=== PATIENT | male | born 1990 | race Two or more races ===

== ENCOUNTER → 2024-04-16 | Outpatient (CLI) | payer BC ==
[2024-04-16 06:34] LABS: Urine Bacteria None Seen /hpf (None Seen); Urine WBC None Seen /hpf (0 - 3)
[2024-04-16 06:38] LABS: Basophils # (auto) 0 10 ^3/uL (0-0.2); Basophils % (auto) 0.6 % (0.0-2.0); Eosinophils # (auto) 0.1 10 ^3/uL (0-0.8); Eosinophils % (auto) 0.7 % (0.0-7.0); Hematocrit 43.7 % (41.0-53.0); Hemoglobin 14.8 g/dL (13.5-17.5); Lymphocytes # (auto) 3.8 10 ^3/uL (0.4-5.4); Lymphocytes % (auto) 42.9 % (10.0-50.0); Mean Corpuscular Hemoglobin 28.8 pg (28.0-32.0); Mean Corpuscular Hgb Conc. 33.9 g/dL (32.0-36.0); Mean Corpuscular Volume 84.7 fL (80.0-100.0); Monocytes # (auto) 0.4 10 ^3/uL (0-1.3); Monocytes % (auto) 4.9 % (0.0-12.0); Neutrophils # (auto) 4.5 10 ^3/uL (1.6-8.6); Neutrophils % (auto) 50.9 % (37.0-80.0); Platelet Count (auto) 261 10^3/uL (140-450); Red Blood Cells 5.15 10^6/uL (4.5-5.90); Red Cell Distribution Width 14.1 % (11.8-14.3); White Blood Cell 8.9 10^3/uL (4.4-10.8)
[2024-04-16 07:02] LABS: Urine Blood Negative /uL (Negative); Urine Clarity Clear (Clear); Urine Color Light-Yellow (Yellow); Urine Protein, UAD Negative (Negative); Urine Specific Gravity 1.019 (1.001-1.035); Urine Urobilinogen Normal (Negative)
[2024-04-16 07:31] LABS: Alanine Aminotransferase 25 U/L (7-40); Albumin 4.4 g/dL (3.2-4.8); Alkaline Phosphatase 69 U/L (46-116); Anion Gap 8 (5-15); Aspartate Aminotransferase 10 U/L (13-40); BUN/Creatinine Ratio 15.1 (10.0-20.0); Bilirubin, Total 0.7 mg/dL (0.2-1.0); Blood Urea Nitrogen 18 mg/dL (9-23); Calcium 9.4 mg/dL (8.7-10.4); Carbon Dioxide 27 mmol/L (20-31); Chloride 106 mmol/L (98-107); Glucose 89 mg/dL (74-106); Potassium 4.2 mmol/L (3.5-5.1); Sodium 141 mmol/L (136-145); Total Protein 6.6 g/dL (5.7-8.2)
[2024-04-16 07:43] LABS: Triglycerides 89 mg/dL (< 150)
[2024-04-16 07:44] LABS: LDL Cholesterol 110 mg/dL (< 100)
[2024-04-16 07:45] LABS: HDL Cholesterol 43 mg/dL (40-59)
[2024-04-16 07:46] LABS: Cholesterol 161 mg/dL (< 200)
== END | disposition home or self-care (01) ==
LOC: LAB 06:22
PROVIDERS: ATTEND Internal Medicine
DX: I10 Essential (primary) hypertension (principal)
CPT/HCPCS: 36415; 80053; 80061; 81001; 82306; 82607; 83036; 84443; 85025

== ENCOUNTER 2024-07-28 08:39 | Day surgery (SDC) | payer BC ==
[2024-07-27 09:10] LABS: Urine Bacteria None Seen /hpf (None Seen); Urine WBC None Seen /hpf (0 - 3)
[2024-07-27 09:47] LABS: Basophils # (auto) 0 10 ^3/uL (0-0.2); Basophils % (auto) 0.3 % (0.0-2.0); Eosinophils # (auto) 0.1 10 ^3/uL (0-0.8); Eosinophils % (auto) 1.1 % (0.0-7.0); Hemoglobin 14.7 g/dL (13.5-17.5); Lymphocytes # (auto) 2.9 10 ^3/uL (0.4-5.4); Lymphocytes % (auto) 43.7 % (10.0-50.0); Mean Corpuscular Hemoglobin 28.2 pg (28.0-32.0); Mean Corpuscular Hgb Conc. 33.5 g/dL (32.0-36.0); Mean Corpuscular Volume 84.3 fL (80.0-100.0); Monocytes # (auto) 0.3 10 ^3/uL (0-1.3); Monocytes % (auto) 5.3 % (0.0-12.0); Neutrophils # (auto) 3.3 10 ^3/uL (1.6-8.6); Neutrophils % (auto) 49.6 % (37.0-80.0); Nucleated Red Blood Cells % 0.2 %; Platelet Count (auto) 215 10^3/uL (140-450); Red Blood Cells 5.21 10^6/uL (4.5-5.90); Red Cell Distribution Width 14.4 % (11.8-14.3); White Blood Cell 6.6 10^3/uL (4.4-10.8)
[2024-07-27 09:58] LABS: INR 0.99 (0.9-1.15); Partial Thromboplastin Time 28.9 SEC (24.5-34.5); Prothrombin Time 10.5 sec (9.3-11.8)
[2024-07-27 10:06] LABS: Alanine Aminotransferase 26 U/L (7-40); Albumin 4.7 g/dL (3.2-4.8); Alkaline Phosphatase 81 U/L (46-116); Anion Gap 6 (5-15); BUN/Creatinine Ratio 10.7 (10.0-20.0); Bilirubin, Total 0.3 mg/dL (0.2-1.0); Blood Urea Nitrogen 13 mg/dL (9-23); Calcium 10.2 mg/dL (8.7-10.4); Carbon Dioxide 29 mmol/L (20-31); Chloride 106 mmol/L (98-107); Glucose 96 mg/dL (74-106); Potassium 4.5 mmol/L (3.5-5.1); Sodium 141 mmol/L (136-145); Total Protein 7.1 g/dL (5.7-8.2)
[2024-07-27 10:23] LABS: Urine Blood Negative /uL (Negative); Urine Clarity Clear (Clear); Urine Color Light-Yellow (Yellow); Urine Mucus FEW (None Seen); Urine Protein, UAD Negative (Negative); Urine Specific Gravity 1.021 (1.001-1.035); Urine Squamous Epithelial Cell None Seen /hpf (<5); Urine Urobilinogen Normal (Negative)
[2024-07-27 10:27] LABS: Aspartate Aminotransferase 12 U/L (13-40)
[~2024-07-28] VITALS: Ht 185.4 cm; Wt 154.2 kg
[~2024-07-28 08:39] MED LIST: CELE200C PO
[2024-07-28] MEDS ORDERED: MIDAZOLAM HCL 2MG/2ML 2ml VIAL (1mg/ml) ONE (09:57)
[2024-07-28] MEDS ORDERED: KETAMINE 50mg/ML 1ml syringe ONE (09:57)
[2024-07-28] MEDS ORDERED: ONDANSETRON HCL 4 MG/2 ML VIAL ONE (09:58)
[2024-07-28] MEDS ORDERED: KETOROLAC TROMETH 30 MG/ML 1ML VIAL ONE (09:58)
[2024-07-28] MEDS ORDERED: PROPOFOL 10 MG/ML 20 ML IV ONE (09:58)
[2024-07-28] MEDS ORDERED: GLYCOPYRROLATE 0.2 MG/ML 1ML VIAL ONE (09:58)
[2024-07-28] MEDS ORDERED: CLINDAMYCIN 600MG IV 50 ML IV ONE (10:16)
[2024-07-28] MEDS ORDERED: ceFAZolin 1GM VL ONE (10:30)
[2024-07-28] MEDS: BUPIVACAINE 0.5% INJ 50ML VIAL IJ ONE (10:55)
[2024-07-28] MEDS ORDERED: MEPERIDINE HCL (25 MG/ML) 1ML VIAL ONE (10:57)
[2024-07-28 11:04] VITALS: PULSE 99; RESP 18; TEMP 98; O2SAT 95
--- NOTE | 2024-07-28 11:33 | DVHOP2 ---
Operative Report - 2 Report Details Date: 07/28/24 Preop Diagnosis: 1. Right foot achilles tendonitis 2. RIght foot pain Postop Diagnosis: Right Achilles tendonitis Surgeon: Олег Gomez MD Anesthesiologist: See anesthesia Anesthesia: Mac Consent: The patient was informed of the risks and benefits of the procedure. These include but are not limited to complications of anesthesia, postoperative infection, incomplete relief of symptoms, recurrence of symptoms, damage to blood vessels, nerves and tendons, deep venous thrombosis, pulmonary embolism and possible need for repeat surgery in the future. Complications: None Estimated Blood Loss: Minimal Fluids: See anesthesia Findings: Consistent with diagnosis Indications for Surgery: Worsening right Achilles pain Name of Procedure Performed 1. Right achilles debridement ([id number]) Procedure Details Procedure Details: PRE-PROCEDURE INFORMATION: In the pre-op holding area, the extremity to be operated on was clearly marked and the patient verified correct laterality of the marking. The patient was transferred to the OR table and placed in a supine position. A timeout was performed in which identification of the correct pa tient, procedure, location, and materials was done. The right foot and leg were prepped and draped in normal sterile fashion. DESCRIPTION OF PROCEDURE: Attention was directed to the right medial Achilles. Approximately 6 in cm from the calcaneus, where noted on MRI that there was significant fibrosis tendinitis of the tendon, a stab incision was made to allow for access of the Tenex probe. Using in the Tenex probe, debridement of the Achilles tendon was then performed for approximately 45 seconds. It was noted that after the procedure there was decrease in scar tissue. All surgical wounds were irrigated copiously with saline and closed in layers with the aforementioned suture material. A dry sterile dressing was placed on the surgical extremity. The patient was placed in a cam boot POSTOPERATIVE INFORMATION: The patient tolerated the above noted procedure and anesthesia well and was transferred to the PACU with vital signs stable, and vascular status intact with capillary refill intact to all digits. Postoperative instructions reviewed in detail with the patient with written instructions provided. Patient will return to clinic in approximately 10-14 days for first postoperative visit. Patient has the number of the clinic and was instructed to call prior to that time should any problems, questions, or concerns arise. Condition Good Disposition 2 Home ОЛЕГ GOMEZ DPM Jul 28, 2024 11:33
[2024-07-28 11:35] VITALS: BP 136/89; PULSE 92; RESP 12; O2SAT 95
== END 2024-07-28 11:48 | disposition home or self-care (01) ==
LOC: SUR 08:39
PROVIDERS: ATTEND Podiatrist
DX: M76.61 Achilles tendinitis, right leg (principal); M76.62 Achilles tendinitis, left leg; M79.671 Pain in right foot; E66.9 Obesity, unspecified; Z68.41 Body mass index [BMI] 40.0-44.9, adult; Z79.899 Other long term (current) drug therapy; Z88.0 Allergy status to penicillin
CPT/HCPCS: 27605; 36415; 80053; 81001; 85025; 85610; 85730; J0690; J1885; J2175; J2250; J2405; J2704; J3490